=== PATIENT | female | born 1995 | race African-American/Black ===

== ENCOUNTER 2019-02-04 14:53 | Emergency (ER) | payer MEDICAID ==
[~2019-02-04] VITALS: Ht 165.1 cm; Wt 57.0 kg
[2019-02-04] MEDS ORDERED: ONDANSETRON HCL 4MG/2ML INJ IV STA (17:18)
[2019-02-04] MEDS ORDERED: SODIUM CHLORIDE 0.9% 1,000 ML IV ONE (17:18)
[2019-02-04 17:34] LABS: CLARITY URINE CLEAR (CLEAR); COLOR URINE YELLOW (YELLOW); KETONES URINE 1+ (NEGATIVE); LEUKOCYTE ESTERASE URINE 1+ (NEGATIVE); NITRITE URINE NEGATIVE (NEGATIVE); OCCULT BLOOD URINE NEGATIVE (NEGATIVE); PROTEIN URINE 1+ (NEGATIVE); SPECIFIC GRAVITY URINE 1.025 (1.005-1.030)
[2019-02-04] MEDS: MORPHINE SULFATE 4 MG/ML CPJ (NOT FOR IM USE) IV STA ×2 (17:35→17:36)
[2019-02-04 18:07] LABS: BASOPHILS % 1.1 % (0.0-2.0); EOSINOPHILS % 4.5 % (0.0-5.0); HEMATOCRIT. 40.9 % (36.0-48.0); HEMOGLOBIN. 13.3 g/dL (12.0-16.0); LYMPHOCYTES % 33.9 % (20.0-50.0); MEAN CORPUSCULAR HEMOGLOBIN 27.2 pg (28.0-32.0); MEAN CORPUSCULAR VOLUME 83.5 fL (81.0-99.0); MEAN PLATELET VOLUME 8.6 fl (7.4-10.4); MONOCYTES % 10.5 % (2.0-8.0); PLATELET 245 x1000/uL (130-400)
[2019-02-04 18:12] LABS: CHLORIDE 107 mEq/L (98-107)
[2019-02-04 18:15] LABS: PROTHROMBIN TIME 10.3 sec (9.6-11.0)
[2019-02-04 19:33] VITALS: BP 110/79
== END 2019-02-04 19:33 | disposition home or self-care (01) ==
LOC: ER 15:42
DX: N39.0 Urinary tract infection, site not specified (principal); R19.7 Diarrhea, unspecified
CPT/HCPCS: 36415; 80053; 81003; 81025; 83690; 85025; 85610; 96361; 96374; 99283; J2405; J7030; J2270

== ENCOUNTER 2020-10-20 14:15 | Emergency (ER) | payer MEDICAID ==
[~2020-10-20] VITALS: Ht 165.1 cm; Wt 57.0 kg
[2020-10-20] MEDS ORDERED: IBUPROFEN 600MG TABLET PO ONE (16:00)
[2020-10-20] MEDS ORDERED: IBUP-2029 MT (16:07)
[2020-10-20 16:42] VITALS: BP 112/78
== END 2020-10-20 16:42 | disposition home or self-care (01) ==
LOC: ER 14:41
DX: S49.81XA Other specified injuries of right shoulder and upper arm, initial encounter (principal); Z79.82 Long term (current) use of aspirin; X58.XXXA Exposure to other specified factors, initial encounter; Y93.89 Activity, other specified; Y92.89 Other specified places as the place of occurrence of the external cause; Y99.8 Other external cause status
CPT/HCPCS: 73030; 99283